=== PATIENT | female | born 1990 | race Caucasian/White ===

== ENCOUNTER 2020-09-29 17:38 | Emergency (ER) | payer BC ==
[~2020-09-29] VITALS: Ht 154.9 cm; Wt 62.6 kg
[2020-09-29] MEDS ORDERED: ALTAVERA1 EACH PO (17:42)
[2020-09-29] MEDS ORDERED: HYDROCODON-ACE1 EAC7 PO (21:15)
[2020-09-29] MEDS ORDERED: CRUTCHES MISCELL (21:15)
[2020-09-29 21:50] VITALS: BP 130/70
== END 2020-09-29 21:50 | disposition home or self-care (01) ==
LOC: M.ERS 17:38
DX: S82.841A Displaced bimalleolar fracture of right lower leg, initial encounter for closed fracture (principal); W18.39XA Other fall on same level, initial encounter; Y93.89 Activity, other specified; Y92.89 Other specified places as the place of occurrence of the external cause; Y99.8 Other external cause status